=== PATIENT | female | born 1995 | race Caucasian/White ===

== ENCOUNTER 2018-10-18 16:08 | Outpatient (REF) | payer BC, SELFPAY ==
--- NOTE | 2018-10-18 15:45 | PAPFT_PTH ---
PATIENT: Ladan Singer LOC: [facility] U#:[id number] AGE/SX: 23/F ROOM: RE10/18/[address]: LANIE Gill : 1995 BED: DIS: 10/18/2018 SPEC #: [id number] RECD: 10/18/18 17:55 STATUS: WALTER RERashad #: [id number] MINNIE: 10/18/18 15:[address]: Jennifer Dueñas DEPT: [facility] Cytology RECD BY: Roula Maki ENTERED: 10/18/18 17:56 SP TYPE: PAPFT OTHR DR: Celia Mendoza Tissues: 1 - CX/ENDOCX FOR PAP SMEARS Procedures: PAP THIN PREP/[facility] Screening Comments: [id number]
== END 2018-10-18 16:28 ==
LOC: LBN 16:08
PROVIDERS: PCP Nurse Practitioner; Visit Provider Nurse Practitioner Family
DX: Z12.4 Encounter for screening for malignant neoplasm of cervix (principal)
CPT/HCPCS: 88142

== ENCOUNTER 2019-10-17 16:17 | Outpatient (REF) | payer BC, SELFPAY ==
--- NOTE | 2019-10-17 15:00 | PAPFT_PTH ---
PATIENT: Ladan Singer LOC: [facility] U#:[id number] AGE/SX: 24/F ROOM: RE10/17/[address]: LANIE Gill : 1995 BED: DIS: 10/17/2019 SPEC #: [id number] RECD: 10/17/19 16:50 STATUS: WALTER RERashad #: [id number] MINNIE: 10/17/19 15:[address]: Jennifer Dueñas DEPT: [facility] Cytology RECD BY: Roula Maki ENTERED: 10/17/19 16:50 SP TYPE: PAPFT OTHR DR: Celia Mendoza Tissues: 1 - CX/ENDOCX FOR PAP SMEARS Procedures: PAP THIN PREP/[facility]VM Screening Comments: [id number]
== END 2019-10-17 16:37 ==
LOC: LBN 16:17
PROVIDERS: PCP Nurse Practitioner; Visit Provider Nurse Practitioner Family
DX: Z12.4 Encounter for screening for malignant neoplasm of cervix (principal)
CPT/HCPCS: 88142

== ENCOUNTER 2020-11-09 09:41 | Outpatient (REF) | payer BC, SELFPAY ==
--- NOTE | 2020-11-09 08:50 | PAPFT_PTH ---
PATIENT: Ladan Singer LOC: [facility] U#:[id number] AGE/SX: 25/F ROOM: RE11/09/[address]: LANIE Gill : 1995 BED: DIS: 11/09/2020 SPEC #: [id number] RECD: 11/09/20 10:38 STATUS: WALTER REQ #: [id number] MINNIE: 11/09/20 08:[address]: Jennifer Dueñas [facility] Cytology RECD BY: Shae Dixon ENTERED: 11/09/20 10:39 SP TYPE: PAPFT OTHR DR: Celia Mendoza Tissues: 1 - CX/ENDOCX FOR PAP SMEARS Procedures: PAP THIN PREP/[facility]VM Screening Comments: [id number]
== END 2020-11-09 09:42 | disposition home or self-care (01) ==
LOC: LBN 09:41
PROVIDERS: PCP Nurse Practitioner; Visit Provider Nurse Practitioner Family
DX: Z12.4 Encounter for screening for malignant neoplasm of cervix (principal)
CPT/HCPCS: 88142

== ENCOUNTER 2021-06-03 15:19 | Outpatient (REF) | payer BC, SELFPAY ==
[2021-06-03 15:23] LABS: ALT 25 U/L (14-59); AST 10 U/L (15-37); Albumin 3.3 g/dL (3.4-5.0); Alkaline Phosphatase 92 U/L (46-116); Anion Gap 8.5 mmol/L (3-11); BUN 18 mg/dL (7-18); Bilirubin, Total 0.2 mg/dL (0.2-1.0); CO2 27.5 mmol/L (21.0-32.0); CREATININE 0.9 mg/dL (0.55-1.02); Calcium 8.9 mg/dL (8.5-10.1); Calculated LDL 108 mg/dL (<100); Chloride 102 mmol/L (98-107); Cholesterol 201 mg/dL (<200); Glucose 101 mg/dL (74-106); HDL Cholesterol 51 mg/dL (40-60); Potassium 4.8 mmol/L (3.5-5.1); Sodium 138 mmol/L (136-145); Total Protein 7.1 g/dL (6.4-8.2); Triglyceride 213 mg/dL (<150)
== END 2021-06-03 15:20 | disposition home or self-care (01) ==
LOC: NCHCN 15:19
PROVIDERS: PCP Nurse Practitioner; Visit Provider Family Medicine
DX: Z00.00 Encounter for general adult medical examination without abnormal findings (principal); Z13.220 Encounter for screening for lipoid disorders; Z13.228 Encounter for screening for other metabolic disorders
CPT/HCPCS: 80053; 80061

== ENCOUNTER 2021-06-24 03:36 | Outpatient (CLI) | payer BC, SELFPAY ==
--- NOTE | 2021-06-24 09:00 | NS.NUTBLAN_ITS ---
Faina was referred to Medical Nutrition Therapy for weight management. 5'9 290 lbs BMI: 43. Overall, very healthy however has been struggling with her weight all her life. Lowest adult weight: 200 lbs. Goal Wt: under 200 lbs. Strong Family history of obesity and DM. Has aunt that had bariatric surgery and doing well. 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 Stanton's diet generally is well balanced and does not contain simple sugars other than an occasional soda. When she eats chips- she buys the 1 oz bag. She has tried most diets without success. As a teen, she went to a weight loss camp and lost weight, however, regained as soon as she came home. Her weight has been stable in recent years despite low calorie intake most days and intermittent fasting. Session today focused on how to help increase her metabolic rate by eating more often and focusing on lower carb, higher protein meals with healthy fats. Also, recommend 6 hours of cardio per week. We also discussed weight loss expectations with diet and exercise. Answered questions about bariatric surgery and weight loss expectations. . As she is a candidate for bariatric surgery, she wants to move ahead with this option. Stanton to follow up with [facility] or [facility] about their bariatric program and continue to see me for nutritional counseling pre bariatric surgery. Follow up planned for 07/22/21 at 1 pm.
== END 2021-06-24 03:37 | disposition home or self-care (01) ==
PROVIDERS: PCP Nurse Practitioner; Visit Provider Dietitian, Registered
DX: E66.8 Other obesity (principal); Z68.41 Body mass index [BMI] 40.0-44.9, adult
CPT/HCPCS: 97802

== ENCOUNTER 2021-07-22 04:01 | Outpatient (CLI) | payer BC, SELFPAY ==
--- NOTE | 2021-07-22 13:00 | NS.NUTBLAN_ITS ---
Stanton returns for weight management education in preparation for bariatric surgery this year. Wt: 290 lbs. 5'9 BMI 43. No change in weight over last month. Diet Recall: omelete with ww toast, cheese stick, paulina salad, 1 cup fruit, chicken, veggies. Exercise: 3 x per week at gym. Stanton is discouraged as she did not see any weight loss despite following a lower carb, higher protein diet and has stopped drinking any sweetened beverages. She has started to take MVI and biotin and is logging all her meals. Session today discussed her feelings about weight, bariatric surgery and her relationships in the family that do not want her having bariatric surgery. Reviewed ways to focus on her needs and her goals. Encouraged her to continue to log meals, keep carbohydrate level under 100 grams and focusing on non starchy vegetables and lean protein. Stanton signed up for September 06 Intro to Bariatric Surgery at [facility]. Follow up nutrition appt. scheduled for 08/29/21 at 3:30 pm.
== END 2021-07-22 04:02 | disposition home or self-care (01) ==
LOC: DS 04:01
PROVIDERS: PCP Nurse Practitioner; Visit Provider Dietitian, Registered
DX: E66.8 Other obesity (principal); Z68.41 Body mass index [BMI] 40.0-44.9, adult; Z71.3 Dietary counseling and surveillance
CPT/HCPCS: 97803

== ENCOUNTER 2021-08-29 03:21 | Outpatient (CLI) | payer BC, SELFPAY ==
--- NOTE | 2021-08-29 15:00 | NS.NUTBLAN_ITS ---
Stanton returns for weight management education in preparation for bariatric surgery at [facility] [place]. This is her third and final session. 5'9 284 lbs, BMI 42. Has lost 6 lbs in last 4 weeks. Diet recall: omelete, sandwich, chicken paulina salad. Has started intermittent fasting- eating from 11 am - 7 pm daily. Following lower carb diet, able to adjust for higher calorie/higher carb foods. Exercise: goes to gym 3 x weekly Overall, Stanton is doing well and has done a lot of research into weight loss surgery. Her aunt and uncle had gastric bypass/sleeve respectively. Her aunt has maintained her weight loss, however, her uncle was never able to achieve significant weight loss. Reviewed ways how snacking behaviors can sabotage weight loss even after surgery. Stanton is scheduled for 09/06/21 [facility] bariatric into session. Will fax information to [facility] once Stanton as started to be followed by surgeon in preparation for surgery.
== END 2021-08-29 03:22 | disposition home or self-care (01) ==
LOC: DS 03:21
PROVIDERS: PCP Nurse Practitioner; Visit Provider Dietitian, Registered
DX: E66.8 Other obesity (principal); Z68.41 Body mass index [BMI] 40.0-44.9, adult; Z71.3 Dietary counseling and surveillance
CPT/HCPCS: 97803

== ENCOUNTER 2023-04-29 19:14 | Emergency (ER) | payer OTHER, SELFPAY ==
[2023-04-29 19:40] VITALS: BP 136/90; PULSE 78; RESP 16; TEMP 36.5; O2SAT 97
--- NOTE | 2023-04-29 21:04 | ED.GENADUL_ITS ---
Discharge Plan Disposition Patient Disposition: Eloped Condition: Stable Discharge Details Chief Complaint: DrugWithdr/MAT Clinical Impression: Drug abuse Primary Care Provider: Linda Love ED Provider: Gloria Fried Home Meds and New Rx's Prescriptions: No Action hydroxyzine pamoate 25 mg capsule 25 mg PO DAILY PRN citalopram 20 mg tablet 20 mg PO DAILY norgestimate-ethinyl estradiol [Amaris] 0.25-35 mg-mcg tablet 1 tab PO DAILY Qty: 84 3RF buspirone 15 mg tablet Patient Comments: TAKE ONE TABLET BY MOUTH EVERY DAY Medical Decision Making This is a 27-year-old female patient history of smoking crack cocaine who presents for inpatient detox. She is awaiting a callback from [facility]. She has no withdrawal symptoms. She last used today but does not appear impaired. She denies any previous withdrawal symptoms and has gone up to 3 days without using. We did discuss use of Suboxone which she declines at this time. Also discussed referral to [facility] which she states she really is not interested in using Suboxone and feels that she can quit easily. Her brother is in attendance with her and voices frustration regarding lack of inpatient detox program here I did explain that she does not have symptoms of withdrawal so does not meet criteria for inpatient admission here. I did offer a tissue recovery technician which they are agreeable to. We have paged the tissue recovery technician multiple times with no response. I did go out to explain to the patient we are still waiting call and there was nobody in the room. I am assuming she has left the facility. I did instruct registration to notify the emergency department should she return. Medical Records Medical records reviewed: Yes I reviewed the patient's medical records. Lab Data Lab results narrative: Not applicable HPI General Mode of arrival: ambulatory . Date/Time Provider Initiated Documentation: 04/29/23 19:15 . Limitations to Documentation: no limitations . Information obtained by: patient . HPI Narrative: Patient presents for detox. Patient has been smoking crack cocaine since July 2022. She states she goes up to 3 days sometimes without using but then has a desire to use and starts again. She denies any symptoms of withdrawal or history of withdrawal symptoms. Her and her family have reached out to [facility] and are awaiting a phone call back. Medically she has been stable and denies any complaints. She has had no fever chest pain shortness of breath nausea vomiting diarrhea rashes or lesions. She states she also smokes marijuana and has for years. Denies any other illicit drug use. Related Data Home Medications Medication Instructions Recorded Confirmed citalopram 20 mg tablet 20 mg PO DAILY 10/17/19 04/29/23 hydroxyzine pamoate 25 mg capsule 25 mg PO DAILY PRN 01/13/22 04/29/23 norgestimate 0.25 mg-ethinyl 1 tab PO DAILY #84 tabs 12/03/22 04/29/23 estradiol 35 mcg tablet (Amaris) buspirone 15 mg tablet mg 04/29/23 Previous Rx's Medication Instructions Recorded norgestimate 0.25 mg-ethinyl 1 tab PO DAILY #84 tabs 12/03/22 estradiol 35 mcg tablet (Amaris) Allergies Allergy/AdvReac Type Severity Reaction Status Date / Time honey bees Allergy Intermediate Uncoded 04/29/23 19:45 General Stated Complaint: DrugWithdr/MAT OLEG: 3 Review of Systems All systems reviewed & are unremarkable except as noted in HPI and below PFSH All Active Problems (Updated 04/29/23 @ 22:51 by Gloria Fried NP) Drug abuse (Acute) Contraception (Acute 10/08/17) Medical History (Updated 04/29/23 @ 22:51 by Gloria Fried NP) Foreign body Surgical History (Updated 01/13/22 @ 15:55 by Carmella Dorado CNM) Moro teeth extracted Family History (Updated 01/13/22 @ 15:58 by Carmella Dorado CNM) Mother Uterine cancer Maternal Grandmother Cancer Colon cancer Paternal Grandfather Colon cancer Paternal Aunt Colon cancer Maternal Grandfather Diabetes Maternal Aunt Diabetes Social History (Updated 10/18/18 @ 15:51 by Jennifer Dueñas NP) Smoking/Tobacco Use Status: Former Tobacco Use Tobacco: How many years used: 10 Smoking risk assessment performed?: Yes Drug use: Never current occupation: [employer] History History 0 Para Hx # Term Pregnancies Multiple births Hx # Pregnancies Ectopic pregnancies AB induced Hx Number of Living Children AB spontaneous Exam Narrative Exam Narrative: Overweight female of stated age face/and tearful. Head is atraumatic oral mucosa is moist cardiovascular well-perfused her respirations are even and unlabored neurologic she is awake alert oriented no signs of tremor. No signs of impairment or active withdrawal. Skin with no rashes or lesions psychiatric denies suicidal or homicidal ideation. Makes good eye contact responding appropriately she is calm and cooperative Course Vital Signs Vital signs: Vital Signs Temperature 36.5 C 04/29/23 19:40 Pulse 78 04/29/23 19:40 Respiratory Rate 16 04/29/23 19:40 Blood Pressure 136/90 04/29/23 19:40 Pulse Oximetry 97 04/29/23 19:40 Temperature 36.5 C 04/29/23 19:40 Temperature Source Temporal Artery Scan 04/29/23 19:40 Pulse 78 04/29/23 19:40 Respiratory Rate 16 04/29/23 19:40 Blood Pressure 136/90 04/29/23 19:40 Blood Pressure Position Sitting 04/29/23 19:40 Pulse Oximetry 97 04/29/23 19:40 Oxygen Delivery Method Room Air 04/29/23 19:40 Oxygen Flow Rate 0 04/29/23 19:40 Pain Level 0 04/29/23 19:40
== END 2023-04-29 22:53 | disposition left against medical advice (07) ==
PROVIDERS: Emergency Provider Nurse Practitioner Acute Care; PCP Family Medicine
DX: F14.10 Cocaine abuse, uncomplicated (principal); Z53.20 Procedure and treatment not carried out because of patient's decision for unspecified reasons
CPT/HCPCS: 99282

== ENCOUNTER 2025-02-13 08:08 | Outpatient (REF) | payer OTHER, SELFPAY ==
[2025-02-13 17:28] LABS: ALT 27 U/L (14-59); AST 16 U/L (15-37); Albumin 3.8 g/dL (3.4-5.0); Alkaline Phosphatase 98 U/L (46-116); Anion Gap 10.6 mmol/L (3-11); BUN 13 mg/dL (7-18); Bilirubin, Total 0.6 mg/dL (0.2-1.0); CO2 27.4 mmol/L (21.0-32.0); Calcium 9.3 mg/dL (8.5-10.1); Calculated LDL 118 mg/dL (<100); Chloride 102 mmol/L (98-107); Cholesterol 188 mg/dL (<200); Estimated GFR 87.65 (mL/min/1.73m2); Glucose 97 mg/dL (74-106); HDL Cholesterol 45 mg/dL (>or=50); Potassium 4.5 mmol/L (3.5-5.1); Sodium 140 mmol/L (136-145); Total Protein 7.7 g/dL (6.4-8.2); Triglyceride 125 mg/dL (<150); Vitamin D 25 Total 13 ng/mL (30-100)
== END 2025-02-13 08:09 | disposition home or self-care (01) ==
LOC: NCHCN 08:08
PROVIDERS: PCP Family Medicine; Visit Provider Family Medicine
DX: Z00.00 Encounter for general adult medical examination without abnormal findings (principal)
CPT/HCPCS: 80053; 80061; 82306

== ENCOUNTER 2025-02-17 11:28 | Outpatient (REF) | payer OTHER, SELFPAY ==
--- NOTE | 2025-02-17 10:15 | PAPFT_PTH ---
PATIENT: Ladan Singer LOC: [facility]#:[id number] AGE/SX: 29/F ROOM: RE02/17/[address]: Linda Love : 1995 BED: DIS: 02/17/2025 SPEC #: [id number] RECD: 02/17/25 17:32 STATUS: WALTER BARAJAS #: [id number] MINNIE: 02/17/25 10:[address]: Linda Love [facility] Cytology RECD BY: Roula Maki Tissues: 1 - CX/ENDOCX FOR PAP SMEARS Procedures: PAP THIN PREP/[facility] Screening HPV DNA PROBE Comments: [id number] (HPV 16 & 18/45)
== END 2025-02-17 11:29 | disposition home or self-care (01) ==
LOC: NCHCN 11:28
PROVIDERS: PCP Family Medicine; Visit Provider Family Medicine
DX: Z12.4 Encounter for screening for malignant neoplasm of cervix (principal)
CPT/HCPCS: 88142; 87624